=== PATIENT | female | born 1955 | race American Indian/Alaskan Native ===

== ENCOUNTER 2017-08-10 09:55 | Emergency (ER) | payer SELFPAY ==
[2017-08-10] MEDS ORDERED: TYLENOL PO ONE (10:41)
[2017-08-10 11:13] LABS: Hematocrit 35.5 % (30.3-42.9); Hemoglobin 11.7 gm/dl (10.1-14.3); Mean Corpuscular HGB Conc 33 % (30-34); Mean Corpuscular Volume 77 fl (79-97); Platelet Count 324 K/mm3 (140-440); Red Blood Count 4.59 M/mm3 (3.65-5.03)
[2017-08-10 11:22] LABS: Mean Corpuscular Hemoglobin 25 pg (28-32)
[2017-08-10 11:26] LABS: INR 0.87 (0.87-1.13)
[2017-08-10 11:27] LABS: Partial Thromboplastin Time 29.8 Sec. (24.2-36.6); Thrombin Time 16.5 Sec. (15.1-19.6)
[2017-08-10 11:31] LABS: Creatine Kinase MB 1.8 ng/mL (0.0-4.0)
[2017-08-10 11:33] LABS: Alanine Aminotransferase 10 units/L (7-56); Albumin 4.4 g/dL (3.9-5); BUN/Creatinine Ratio 15; Blood Urea Nitrogen 9 mg/dL (7-17); Calcium 9.5 mg/dL (8.4-10.2); Hemolysis Index 4
[2017-08-10 12:10] LABS: Basophils % (Manual) 0 % (0.0-1.8); Eosinophils % (Manual) 0 % (0.0-4.3); Total Cells Counted 100
[2017-08-10 12:11] LABS: Hypochromasia 1+; Platelet Estimate Consistent w Auto
--- NOTE | 2017-08-10 12:16 | Cat Scan Report ---
FINAL REPORT EXAM: CT HEAD/BRAIN WO CON HISTORY: Stroke symptoms TECHNIQUE: Axial noncontrast CT images of the brain were performed. Total exam DLP 920.48 mGy-cm Comparison: None FINDINGS: There is normal bah-white differentiation without midline shift or mass effect. There are no acute extra-axial fluid collections or intraparenchymal blood products. Ventricles and cisterns have normal size and configuration. Posterior fossa is unremarkable. Conjugate gaze. Orbital cones and apices are unremarkable. Clear imaged paranasal sinuses. No displaced calvarial fracture. There are bilateral punctate basal ganglia calcifications. IMPRESSION: No acute transcortical infarct, bleed, or mass identified. If symptoms persist, recommend MRI brain with diffusion-weighted imaging if there are no contraindications.
--- NOTE | 2017-08-10 12:47 | Emergency Department Report ---
ED General Adult HPI - General Chief complaint: Neuro Symptoms/Deficit Stated complaint: R ARM NUMB, NAUSEA Time Seen by Provider: 08/10/17 10:26 Source: patient, RN notes reviewed Mode of arrival: Ambulatory Limitations: No Limitations - History of Present Illness Initial comments: This is a 62-year-old female who is unknown to this provider, does not have a primary care doctor and denies chronic medical conditions. The patient is right -hand dominant and works as a office cashier. The patient presents to the ER with multiple complaints. Her first complaint is right-sided hand pain, wrist pain, and numbness in the joints of her hands. This has been intermittent for one week. Her next complaint is intermittent right arm weakness and tingling which has been going on for 1 week. The weakness and tingling started this shoulder and radiated distally. There is no midline neck pain, there is no bladder or bowel retention or incontinence and there is no saddle anesthesia. Her next complaint is binocular blurry vision, which has been present for months. Her next complaint is nausea, vomiting and diarrhea. This has been going on for the past few days. She denies urinary symptoms. She reports no episodes of diarrhea today, 2 episodes of nonbloody, nonbilious diarrhea yesterday, and 1 -2 episodes of nonbloody, nonbilious emesis yesterday. She denies sick contacts and denies abdominal pain. She denies headache, neck pain, chest pain , abdominal pain, lower extremity weakness, numbness, ataxia, also denies bladder or bowel retention/incontinence. -: Gradual Location: right, upper extremity Severity scale (0 -10): 0 Quality: aching Consistency: intermittent Improves with: none, other (see hpi) Worsens with: none, other (see hpi) Associated Symptoms: denies: confusion, chest pain, cough, diaphoresis, fever/ chills, headaches, loss of appetite, malaise, shortness of breath, syncope, weakness - Related Data Previous Rx's Medication Instructions Recorded Last Taken Type Aspirin [Aspirin BABY CHEW TAB] 81 mg PO QDAY #30 tab.chew 08/10/17 Unknown Rx Ondansetron [Zofran Odt] 4 mg PO Q8HR PRN #20 tab.rapdis 08/10/17 Unknown Rx Allergies Allergy/AdvReac Type Severity Reaction Status Date / Time No Known Allergies Allergy Verified 08/10/17 10:12 ED Review of Systems ROS: Stated complaint: R ARM NUMB, NAUSEA Other details as noted in HPI Comment: All other systems reviewed and negative ED Past Medical Hx - Past Medical History Previous Medical History?: No - Surgical History Past Surgical History?: No - Social History Smoking Status: Current Every Day Smoker Substance Use Type: Alcohol - Medications Home Medications: Home Medications Medication Instructions Recorded Confirmed Last Taken Type Aspirin [Aspirin BABY CHEW TAB] 81 mg PO QDAY #30 tab.chew 08/10/17 Unknown Rx Ondansetron [Zofran Odt] 4 mg PO Q8HR PRN #20 tab.rapdis 08/10/17 Unknown Rx ED Physical Exam - General Limitations: No Limitations General appearance: alert, in no apparent distress - Head Head exam: Present: atraumatic, normocephalic - Eye Eye exam: Present: normal appearance, PERRL, EOMI, other (visual acuity intact to finger counting, color perception, reading at a close distance). Absent: nystagmus - ENT ENT exam: Present: normal exam, normal orophraynx, mucous membranes moist, normal external ear exam - Neck Neck exam: Present: normal inspection, full ROM. Absent: tenderness, meningismus - Respiratory Respiratory exam: Present: normal lung sounds bilaterally. Absent: respiratory distress - Cardiovascular Cardiovascular Exam: Present: regular rate, normal rhythm, normal heart sounds. Absent: systolic murmur, diastolic murmur, rubs, gallop - GI/Abdominal GI/Abdominal exam: Present: soft, normal bowel sounds. Absent: distended, tenderness, rebound, rigid, pulsatile mass - Extremities Exam Extremities exam: Present: normal inspection, full ROM, tenderness (positive Phalen's test, positive Tinel's test right upper extremity. Full range of motion bilateral upper, lower extremities. 2+ pulses noted in the bilateral upper, lower extremities, no long bony tenderness, compartments are soft.), normal capillary refill. Absent: pedal edema, joint swelling, calf tenderness - Back Exam Back exam: Present: normal inspection, full ROM. Absent: tenderness, CVA tenderness (R), paraspinal tenderness, vertebral tenderness - Neurological Exam Neurological exam: Present: alert, oriented X3, CN II-XII intact, normal gait, reflexes normal, other (Extraocular movements intact. Tongue midline. No facial droop. Facial sensation intact to light touch in the V1, V2, V3 distribution bilaterally. 5 and 5 strength in 4 extremities.. Sensation is intact to light touch in 4 extremities.). Absent: motor sensory deficit - Psychiatric Psychiatric exam: Present: normal affect, normal mood - Skin Skin exam: Present: warm, dry, intact, normal color. Absent: rash ED Course Vital Signs 08/10/17 08/10/17 10:12 12:06 Temperature 98.1 F Pulse Rate 94 H 88 Respiratory 16 16 Rate Blood Pressure 177/99 Blood Pressure 162/79 [Left] O2 Sat by Pulse 97 98 Oximetry ED Medical Decision Making - Lab Data Result diagrams: 08/10/17 10:50 08/10/17 10:50 Vital Signs 08/10/17 08/10/17 10:12 12:06 Temperature 98.1 F Pulse Rate 94 H 88 Respiratory 16 16 Rate Blood Pressure 177/99 Blood Pressure 162/79 [Left] O2 Sat by Pulse 97 98 Oximetry Lab Results 08/10/17 08/10/17 08/10/17 Range/Units 10:50 10:50 10:50 WBC 7.9 (4.5-11.0) K/mm3 RBC 4.59 (3.65-5.03) M/mm3 Hgb 11.7 (10.1-14.3) gm/dl Hct 35.5 (30.3-42.9) % MCV 77 L (79-97) fl MCH 25 L (28-32) pg MCHC 33 (30-34) % RDW 15.0 (13.2-15.2) % Plt Count 324 (140-440) K/mm3 Add Manual Diff Complete Total Counted 100 Seg Neuts % (Manual) 62.0 (40.0-70.0) % Band Neutrophils % 0 % Lymphocytes % (Manual) 33.0 (13.4-35.0) % Reactive Lymphs % (Man) 0 % Monocytes % (Manual) 5.0 (0.0-7.3) % Eosinophils % (Manual) 0 (0.0-4.3) % Basophils % (Manual) 0 (0.0-1.8) % Metamyelocytes % 0 % Myelocytes % 0 % Promyelocytes % 0 % Blast Cells % 0 % Nucleated RBC % Not Reportable Seg Neutrophils # Man 4.9 (1.8-7.7) K/mm3 Band Neutrophils # 0.0 K/mm3 Lymphocytes # (Manual) 2.6 (1.2-5.4) K/mm3 Abs React Lymphs (Man) 0.0 K/mm3 Monocytes # (Manual) 0.4 (0.0-0.8) K/mm3 Eosinophils # (Manual) 0.0 (0.0-0.4) K/mm3 Basophils # (Manual) 0.0 (0.0-0.1) K/mm3 Metamyelocytes # 0.0 K/mm3 Myelocytes # 0.0 K/mm3 Promyelocytes # 0.0 K/mm3 Blast Cells # 0.0 K/mm3 WBC Morphology Not Reportable Hypersegmented Neuts Not Reportable Hyposegmented Neuts Not Reportable Hypogranular Neuts Not Reportable Smudge Cells Not Reportable Toxic Granulation Not Reportable Toxic Vacuolation Not Reportable Dohle Bodies Not Reportable Pelger-Huet Anomaly Not Reportable Moo Rods Not Reportable Platelet Estimate Consistent w auto Clumped Platelets Not Reportable Plt Clumps, EDTA Not Reportable Large Platelets Not Reportable Giant Platelets Not Reportable Platelet Satelliting Not Reportable Plt Morphology Comment Not Reportable RBC Morphology Not Reportable Dimorphic RBCs Not Reportable Polychromasia Not Reportable Hypochromasia 1+ Poikilocytosis Not Reportable Anisocytosis Not Reportable Microcytosis 1+ Macrocytosis Not Reportable Spherocytes Not Reportable Pappenheimer Bodies Not Reportable Sickle Cells Not Reportable Target Cells Not Reportable Tear Drop Cells Not Reportable Ovalocytes Not Reportable Helmet Cells Not Reportable [place] Bodies Not Reportable [place] Rings Not Reportable [place] Cells Not Reportable Bite Cells Not Reportable Crenated Cell Not Reportable Elliptocytes Not Reportable Acanthocytes (Spur) Not Reportable Rouleaux Not Reportable Hemoglobin C Crystals Not Reportable Schistocytes Not Reportable Malaria parasites Not Reportable Kam Bodies Not Reportable Hem Pathologist Commnt No PT 12.2 (12.2-14.9) Sec. INR 0.87 (0.87-1.13) APTT 29.8 (24.2-36.6) Sec. Thrombin Time 16.5 (15.1-19.6) Sec. Sodium (137-145) mmol/L Potassium (3.6-5.0) mmol/L Chloride (98-107) mmol/L Carbon Dioxide (22-30) mmol/L Anion Gap mmol/L BUN (7-17) mg/dL Creatinine (0.7-1.2) mg/dL Estimated GFR ml/min BUN/Creatinine Ratio % Glucose (65-100) mg/dL Calcium (8.4-10.2) mg/dL Total Bilirubin (0.1-1.2) mg/dL AST (5-40) units/L ALT (7-56) units/L Alkaline Phosphatase (35-129) units/L Total Creatine Kinase 122 (30-135) units/L CK-MB (CK-2) 1.8 (0.0-4.0) ng/mL CK-MB (CK-2) Rel Index 1.4 (0-4) Troponin T < 0.010 (0.00-0.029) ng/mL Total Protein (6.3-8.2) g/dL Albumin (3.9-5) g/dL Albumin/Globulin Ratio % 08/10/17 Range/Units 10:50 WBC (4.5-11.0) K/mm3 RBC (3.65-5.03) M/mm3 Hgb (10.1-14.3) gm/dl Hct (30.3-42.9) % MCV (79-97) fl MCH (28-32) pg MCHC (30-34) % RDW (13.2-15.2) % Plt Count (140-440) K/mm3 Add Manual Diff Total Counted Seg Neuts % (Manual) (40.0-70.0) % Band Neutrophils % % Lymphocytes % (Manual) (13.4-35.0) % Reactive Lymphs % (Man) % Monocytes % (Manual) (0.0-7.3) % Eosinophils % (Manual) (0.0-4.3) % Basophils % (Manual) (0.0-1.8) % Metamyelocytes % % Myelocytes % % Promyelocytes % % Blast Cells % % Nucleated RBC % Seg Neutrophils # Man (1.8-7.7) K/mm3 Band Neutrophils # K/mm3 Lymphocytes # (Manual) (1.2-5.4) K/mm3 Abs React Lymphs (Man) K/mm3 Monocytes # (Manual) (0.0-0.8) K/mm3 Eosinophils # (Manual) (0.0-0.4) K/mm3 Basophils # (Manual) (0.0-0.1) K/mm3 Metamyelocytes # K/mm3 Myelocytes # K/mm3 Promyelocytes # K/mm3 Blast Cells # K/mm3 WBC Morphology Hypersegmented Neuts Hyposegmented Neuts Hypogranular Neuts Smudge Cells Toxic Granulation Toxic Vacuolation Dohle Bodies Pelger-Huet Anomaly Moo Rods Platelet Estimate Clumped Platelets Plt Clumps, EDTA Large Platelets Giant Platelets Platelet Satelliting Plt Morphology Comment RBC Morphology Dimorphic RBCs Polychromasia Hypochromasia Poikilocytosis Anisocytosis Microcytosis Macrocytosis Spherocytes Pappenheimer Bodies Sickle Cells Target Cells Tear Drop Cells Ovalocytes Helmet Cells [place] Bodies [place] Rings Ken Cells Bite Cells Crenated Cell Elliptocytes Acanthocytes (Spur) Rouleaux Hemoglobin C Crystals Schistocytes Malaria parasites Kam Bodies Hem Pathologist Commnt PT (12.2-14.9) Sec. INR (0.87-1.13) APTT (24.2-36.6) Sec. Thrombin Time (15.1-19.6) Sec. Sodium 141 (137-145) mmol/L Potassium 3.8 (3.6-5.0) mmol/L Chloride 101.2 (98-107) mmol/L Carbon Dioxide 25 (22-30) mmol/L Anion Gap 19 mmol/L BUN 9 (7-17) mg/dL Creatinine 0.6 L (0.7-1.2) mg/dL Estimated GFR > 60 ml/min BUN/Creatinine Ratio 15 % Glucose 108 H (65-100) mg/dL Calcium 9.5 (8.4-10.2) mg/dL Total Bilirubin 0.30 (0.1-1.2) mg/dL AST 16 (5-40) units/L ALT 10 (7-56) units/L Alkaline Phosphatase 55 (35-129) units/L Total Creatine Kinase (30-135) units/L CK-MB (CK-2) (0.0-4.0) ng/mL CK-MB (CK-2) Rel Index (0-4) Troponin T (0.00-0.029) ng/mL Total Protein 7.8 (6.3-8.2) g/dL Albumin 4.4 (3.9-5) g/dL Albumin/Globulin Ratio 1.3 % - EKG Data -: EKG Interpreted by Me EKG shows normal: sinus rhythm Rate: tachycardia - EKG Data When compared to previous EKG there are: previous EKG unavailable 08/10/17 12:53 Sinus tachycardia, 102 bpm, normal axis, QTC prolonged, left ventricular hypertrophy, atrial enlargement, not a stemi - Radiology Data Radiology results: report reviewed, image reviewed Noncontrast CT scan of the brain is negative for acute disease - Medical Decision Making Differential diagnosis, including but not limited to: Tendinitis, cervical radiculopathy, multiple sclerosis, transient ischemic attack, enteritis, urinary tract infection Assessment and plan: 62-year-old female with multiple symptoms, including neurologic symptoms that list blurry vision, right upper extremity intermittent weakness and numbness, as well as nausea, vomiting and diarrhea. The patient is afebrile with reassuring vital signs, clinically sober at this time, has a [place] Coma Scale of 15, with an NIH score of 0. She has appropriate reflexes with downgoing plantar reflexes bilaterally and has no clinical indication at this time of epidural compression syndrome. The compartments are soft, with no redness, pus or streaking, and she's had no episodes of nausea, vomiting or diarrhea at this time. Given her complaint of binocular blurry vision and intermittent right lower extremity weakness and numbness, I recommended admission to the hospital to further evaluate for possible TIA, as the patient does not have reliable outpatient follow-up. The patient is going to sign out AGAINST MEDICAL ADVICE and indicates she will follow-up as an outpatient. The patient is alert and oriented 3, currently sober, and exhibits decision-making capacity. The risks of leaving, including , disability, paralysis, loss of quality of life were discussed with the patient who verbalized understanding and decision- making capacity in her own words. This discussion is witnessed by nurse Eloisa Richards. Patient will be referred to outpatient neurology, outpatient physical therapy/ orthopedics, and she is counseled that she can return to the ER right away if and when she changes her mind. Critical care attestation.: If time is entered above; I have spent that time in minutes in the direct care of this critically ill patient, excluding procedure time. ED Disposition Clinical Impression: Right arm pain, TIA (transient ischemic attack), History of nausea and vomiting Disposition: [id number] LEFT AGAINST MED ADVICE Is pt being admited?: No Does the pt Need Aspirin: No Condition: Undetermined Instructions: Transient Ischemic Attack (ED), Tendinitis (ED) Additional Instructions: As we discussed, you have left the hospital/emergency room AGAINST MEDICAL ADVICE. By leaving, you risked , disability, paralysis, permanent loss of quality of life. The ER is open 24 hours a day, 7 days a week. It never closes. Please return to the emergency room right away if and when you change your mind. If you decide not to return to the emergency room, please follow-up with the listed physician referrals as soon as possible. Referrals: VICTORINO SANCHEZ MD [Primary Care Provider] - 3-5 Days GALINA YOST MD [Referring] - 3-5 Days ELDA MEJIAS MD [Staff Physician] - 3-5 Days NICK GARZA MD [Staff Physician] - 3-5 Days APRIL STEVENS MD [Staff Physician] - 3-5 Days
[2017-08-10 13:08] VITALS: BP 162/89
== END 2017-08-10 14:00 | disposition left against medical advice (07) ==
LOC: ED 09:55
DX: G45.9 Transient cerebral ischemic attack, unspecified (principal); M79.601 Pain in right arm; F17.200 Nicotine dependence, unspecified, uncomplicated; Z79.82 Long term (current) use of aspirin
CPT/HCPCS: 36415; 70450; 80053; 82550; 82553; 84484; 85007; 85025; 85610; 85670; 85730; 93005; 93010